=== PATIENT | male | born 1980 | race Two or more races ===

== ENCOUNTER 2022-03-02 10:01 | Emergency (ER) | payer OTHER, SELFPAY ==
[2022-03-02] VITALS (21 sets, daily range): BP systolic 142–216; BP diastolic 96–141; PULSE 62–75; RESP 18; TEMP 36.2; O2SAT 94–99; BMI 36.5
[2022-03-02] MEDS: NITROGLYCERIN 0.4 MG TAB.SUBL SUBLINGUAL (10:30)
--- NOTE | 2022-03-02 10:43 | ED_ITS ---
HPI - General Adult General Time Seen by Provider: 10:43 Date Seen: 03/02/22 Chief complaint: High Blood Pressure Stated complaint: elevated bp Time Seen by Provider: 03/02/22 10:14 Source: patient Mode of arrival: ambulatory Limitations: no limitations History of Present Illness HPI narrative: Patient is a 41-year-old male who reports he has had elevated blood pressure readings recently, and was sent to the ER. His blood pressure on presentation is 216/141. The patient was emergently given sublingual nitroglycerin as he was asymptomatic, and his blood pressure now is 152/109. He was also given Toprol all 50 mg orally his pulse is in the 70 range. He denies any symptoms, no chest pain, no urinary symptoms, no back pain no fevers chills or cough. The patient does report that he was on a blood pressure medicine in the past for high blood pressure but it did not ?agree with him?. He is a trailer truck driver, plans on doctoring locally, was started on blood pressure pill in [place] at a clinic. Related Data Previous Rx's Medication Instructions Recorded metoprolol succinate 50 mg capsule 50 mg PO DAILY #14 ea 03/02/22 sprinkle, ext. release 24 hr Allergies Allergy/AdvReac Type Severity Reaction Status Date / Time No Known Drug Allergies Allergy Verified 03/02/22 10:12 Review of Systems Status of ROS: Reports: 10 or more systems reviewed and unremarkable except as noted in History and below PFSH PFSH Social History Smoking Status: Unknown if ever smoked How often do you have a drink containing alcohol: 2-4 times a month AUDIT-C Alcohol total score: 2 Non-prescribed substance use: denies use Exam Narrative: Exam Narrative: Objective: Patient is alert orient x3, no distress, no cyanosis Vital signs show blood pressure as above, O2 sat is excellent HEENT is unremarkable no facial asymmetry pupils react to light nose icterus Neck is supple Chest clear Heart rhythm regular without murmur Abdomen soft nontender no masses or hepatosplenomegaly Extremities are no edema neurologic nonfocal Good peripheral perfusion Skin is warm and dry Const: Vital Signs, click to edit/add: Vital Signs - 24 hr 03/02/22 10:08 03/02/22 10:17 03/02/22 10:20 Temperature 97.2 F L Pulse Rate 68 68 Pulse Rate [Right Pulse Oximeter] 71 Respiratory Rate 18 Blood Pressure 163/116 H Blood Pressure [Ri ght Upper Arm] 216/141 H Pulse Oximetry 98 97 96 Oxygen Delivery Me thod Room Air 03/02/22 10:21 03/02/22 10:25 03/02/22 10:30 Temperature Pulse Rate 66 67 71 Pulse Rate [Right Pulse Oximeter] Respiratory Rate Blood Pressure 166/119 H Blood Pressure [Ri ght Upper Arm] Pulse Oximetry 97 97 94 Oxygen Delivery Me thod 03/02/22 10:31 03/02/22 10:32 03/02/22 10:40 Temperature Pulse Rate 72 70 73 Pulse Rate [Right Pulse Oximeter] Respiratory Rate Blood Pressure 152/109 H Blood Pressure [Ri ght Upper Arm] Pulse Oximetry 94 95 95 Oxygen Delivery Me thod 03/02/22 10:41 03/02/22 10:51 03/02/22 10:52 Temperature Pulse Rate 75 70 66 Pulse Rate [Right Pulse Oximeter] Respiratory Rate Blood Pressure 155/104 H 162/104 H Blood Pressure [Ri ght Upper Arm] Pulse Oximetry 96 95 97 Oxygen Delivery Me thod 03/02/22 11:00 03/02/22 11:01 03/02/22 11:10 Temperature Pulse Rate 64 67 66 Pulse Rate [Right Pulse Oximeter] Respiratory Rate Blood Pressure 142/103 H Blood Pressure [Ri ght Upper Arm] Pulse Oximetry 98 96 97 Oxygen Delivery Me thod 03/02/22 11:12 03/02/22 11:20 03/02/22 11:22 Temperature Pulse Rate 64 65 Pulse Rate [Right Pulse Oximeter] Respiratory Rate Blood Pressure 152/103 H 148/96 H Blood Pressure [Ri ght Upper Arm] Pulse Oximetry 96 97 Oxygen Delivery Me thod 03/02/22 11:32 03/02/22 11:33 03/02/22 11:40 Temperature Pulse Rate 65 62 Pulse Rate [Right Pulse Oximeter] 65 Respiratory Rate 18 Blood Pressure 160/105 H Blood Pressure [Ri ght Upper Arm] 160/109 H Pulse Oximetry 97 99 96 Oxygen Delivery Me thod Room Air Course Vital Signs Vital signs: Initial Vital Signs Temperature 97.2 F L 03/02/22 10:08 Temperature Source Temporal Artery Scan 03/02/22 10:08 Pulse Rate 71 03/02/22 10:08 Respiratory Rate 18 03/02/22 10:08 Blood Pressure 216/141 H 03/02/22 10:08 Blood Pressure Mean 166 03/02/22 10:08 Blood Pressure Position Sitting 03/02/22 10:08 Pulse Oximetry 98 03/02/22 10:08 Oxygen Delivery Method 03/02/22 10:08 Vital Signs Temperature 97.2 F L 03/02/22 10:08 Pulse Rate 71 03/02/22 10:08 Respiratory Rate 18 03/02/22 10:08 Blood Pressure 216/141 H 03/02/22 10:08 Pulse Oximetry 98 03/02/22 10:08 Oxygen Delivery Method 03/02/22 10:08 Temperature 97.2 F L 03/02/22 10:08 Pulse Rate 65 03/02/22 11:40 Respiratory Rate 18 03/02/22 11:40 Blood Pressure 160/109 H 03/02/22 11:40 Pulse Oximetry 96 03/02/22 11:40 Oxygen Delivery Method 03/02/22 11:40 Medical Decision Making MDM Narrative Medical decision making narrative: Patient's past medical issues include hypertension, and he has had an umbilical hernia repair. He is not on any medications currently, was on a blood pressure medicine the past. He is asymptomatic presently, but will do an EKG SARs test, laboratory studies, electrolytes and renal function, and urinalysis to exclude any end-organ damage. His blood pressure is already improved with nitroglycerin sublingual, will start metoprolol 50 mg orally, and watches blood pressure. If it remains stable will discharge him on a long-acting metoprolol, with clinic follow-up within the next couple of days. Addendum: The patient has remained stable he is asymptomatic, his lab studies show normal CBC, Chem problems full profile shows low normal potassium at 3.3 his renal function looks normal, his troponin is less than 0.01 CRP is negative urinalysis is basically negative COVID is pending. At this point I think we can safely let him go home, will start metoprolol long-acting for him and have him follow up with his regular doctor next few days, would recommend a blood pressure check a couple times a day for the next 2 days Lab Data Labs: Lab Results 03/02/22 03/02/22 03/02/22 Range/Units 10:34 10:50 10:50 WBC 7.39 (4.50-11.00) K/uL RBC 5.18 (4.30-5.90) m/uL Hgb 14.8 (13.5-17.5) gm/dL Hct 43.6 (37.0-53.0) % MCV 84 (80-100) fL MCH 29 (26-34) pg MCHC 34 (32-36) gm/dL RDW Coeff of Maureen 13.1 (11.5-15.5) % Plt Count 325 (140-440) K/uL Neut % (Auto) 62.5 (42.0-72.0) % Lymph % (Auto) 25.3 (20-44) % [place] % (Auto) 7.8 (0.0-11.0) % Eos % (Auto) 3.2 (0.0-7.0) % Baso % (Auto) 0.9 (0.0-3.0) % Neut # (Auto) 4.61 (1.7-7.0) K/uL Lymph # (Auto) 1.87 (0.90-2.90) K/uL [place] # (Auto) 0.60 (0.00-0.90) K/UL Eos # (Auto) 0.24 (0.00-0.50) K/uL Baso # (Auto) 0.07 (0.00-0.30) K/uL Abs Immat Gran (auto) 0.02 (0.00-0.30) K/uL Sodium 142 (135-149) mmol/L Potassium 3.3 L (3.6-5.1) mmol/L Chloride 105 (96-114) mmol/L Carbon Dioxide 28 (20-32) mmol/L BUN 15 (5-24) mg/dL Creatinine 1.0 (0.5-1.5) mg/dL Estimated Creat Clear 95.00 Estimated GFR 98 ml/min Glucose 101 (60-115) mg/dL Calcium 8.4 (8.4-10.6) mg/dL Total Bilirubin 0.5 (0.1-1.5) mg/dL Direct Bilirubin 0.2 (0.0-0.5) mg/dL AST 25 (12-35) U/L ALT 35 (4-50) U/L Alkaline Phosphatase 87 (40-150) U/L Troponin I (0.01-0.04) ng/mL C-Reactive Protein (0.5-1.0) mg/dL Total Protein 7.7 (6.0-8.3) g/dL Albumin 4.6 (3.3-5.0) g/dL Urine Color Yellow (Yellow) Urine Appearance Cloudy A (Clear) Urine pH 7.0 (5.0-8.5) Ur Specific [place] 1.025 (1.000-1.030) Urine Protein Negative (Negative) Urine Glucose (UA) Negative (Negative) Urine Ketones Negative (Negative) Urine Blood Negative (Negative) Urine Nitrite Negative (Negative) Urine Bilirubin Negative (Negative) Urine Urobilinogen 0.2 (0.2-1.0) Ur Leukocyte Esterase Negative (Negative) Urine RBC 0-2 (0-2) Urine WBC 0-2 (0-5) Ur Squamous Epith Cells None (None-Few) Amorphous Sediment Many A (None) Urine Bacteria Few A (None) 03/02/22 Range/Units 10:50 WBC (4.50-11.00) K/uL RBC (4.30-5.90) m/uL Hgb (13.5-17.5) gm/dL Hct (37.0-53.0) % MCV (80-100) fL MCH (26-34) pg MCHC (32-36) gm/dL RDW Coeff of Maureen (11.5-15.5) % Plt Count (140-440) K/uL Neut % (Auto) (42.0-72.0) % Lymph % (Auto) (20-44) % [place] % (Auto) (0.0-11.0) % Eos % (Auto) (0.0-7.0) % Baso % (Auto) (0.0-3.0) % Neut # (Auto) (1.7-7.0) K/uL Lymph # (Auto) (0.90-2.90) K/uL [place] # (Auto) (0.00-0.90) K/UL Eos # (Auto) (0.00-0.50) K/uL Baso # (Auto) (0.00-0.30) K/uL Abs Immat Gran (auto) (0.00-0.30) K/uL Sodium (135-149) mmol/L Potassium (3.6-5.1) mmol/L Chloride (96-114) mmol/L Carbon Dioxide (20-32) mmol/L BUN (5-24) mg/dL Creatinine (0.5-1.5) mg/dL Estimated Creat Clear Estimated GFR ml/min Glucose (60-115) mg/dL Calcium (8.4-10.6) mg/dL Total Bilirubin (0.1-1.5) mg/dL Direct Bilirubin (0.0-0.5) mg/dL AST (12-35) U/L ALT (4-50) U/L Alkaline Phosphatase (40-150) U/L Troponin I < 0.01 L (0.01-0.04) ng/mL C-Reactive Protein 1.0 (0.5-1.0) mg/dL Total Protein (6.0-8.3) g/dL Albumin (3.3-5.0) g/dL Urine Color (Yellow) Urine Appearance (Clear) Urine pH (5.0-8.5) Ur Specific [place] (1.000-1.030) Urine Protein (Negative) Urine Glucose (UA) (Negative) Urine Ketones (Negative) Urine Blood (Negative) Urine Nitrite (Negative) Urine Bilirubin (Negative) Urine Urobilinogen (0.2-1.0) Ur Leukocyte Esterase (Negative) Urine RBC (0-2) Urine WBC (0-5) Ur Squamous Epith Cells (None-Few) Amorphous Sediment (None) Urine Bacteria (None) Discharge Plan Discharge Clinical Impression: Hypertensive urgency Patient Disposition: Home, Self-Care Condition: Improved Additional Instructions: Blood pressure medicine as prescribed, lower salt intake, follow up with primary care in 2 days, check blood pressure a couple times each day. Patient should not drive until he is rechecked evaluated with his regular doctor in 2 days in terms of his [employer] job Activity Level: Light activity Discharge Diet: Heart Healthy (2 gm sodium, low fat) Prescriptions: New metoprolol succinate 50 mg capsule,sprinkle,ER 24hr 50 mg PO DAILY Qty: 14 2RF Follow Up/Referrals: Jacquelin Mays MD [Primary Care Provider] - Stand Alone Forms: [employer] Info Instructions
[2022-03-02 11:01] LABS: Basophils Absolute Auto 0.07 K/uL (0.00-0.30); Basophils Percent Auto 0.9 % (0.0-3.0); Eosinophils Absolute Auto 0.24 K/uL (0.00-0.50); Eosinophils Percent Auto 3.2 % (0.0-7.0); Hematocrit 43.6 % (37.0-53.0); Hemoglobin* 14.8 gm/dL (13.5-17.5); Immature Granulocytes Abs Auto 0.02 K/uL (0.00-0.30); Lymphocytes Absolute Auto 1.87 K/uL (0.90-2.90); Lymphocytes Percent Auto 25.3 % (20-44); Mean Corpuscular HGB Conc 34 gm/dL (32-36); Mean Corpuscular Hemoglobin 29 pg (26-34); Mean Corpuscular Volume 84 fL (80-100); Monocytes Percent Auto 7.8 % (0.0-11.0); Neutrophils Absolute Auto 4.61 K/uL (1.7-7.0); Neutrophils Percent Auto 62.5 % (42.0-72.0); Platelet Count* 325 K/uL (140-440); RDW Coefficient of Variation % 13.1 % (11.5-15.5); Red Blood Count 5.18 m/uL (4.30-5.90); Slide Review Reflex No; White Blood Count* 7.39 K/uL (4.50-11.00)
[2022-03-02 11:09] LABS: Albumin* 4.6 g/dL (3.3-5.0); Chloride* 105 mmol/L (96-114)
[2022-03-02 11:10] LABS: Potassium* 3.3 mmol/L (3.6-5.1); Sodium* 142 mmol/L (135-149)
[2022-03-02 11:12] LABS: Carbon Dioxide* 28 mmol/L (20-32); Estimated Glomerular Filt Rate 98 ml/min
[2022-03-02 11:13] LABS: Alanine Aminotransferase* 35 U/L (4-50); Alkaline Phosphatase* 87 U/L (40-150); Aspartate Amino Transferase* 25 U/L (12-35); Bilirubin Direct* 0.2 mg/dL (0.0-0.5); Bilirubin Total* 0.5 mg/dL (0.1-1.5); Blood Urea Nitrogen* 15 mg/dL (5-24); Calcium* 8.4 mg/dL (8.4-10.6); Glucose* 101 mg/dL (60-115); Total Protein* 7.7 g/dL (6.0-8.3)
[2022-03-02] MEDS: METOPROLOL TARTRATE 25 MG TABLET 50 MG PO (11:25)
[2022-03-02 11:36] LABS: Appearance Urine Cloudy (Clear); Bilirubin Urine Negative (Negative); Blood Urine Negative (Negative); Color Urine Yellow (Yellow); Glucose Urine Negative (Negative); Ketones Urine Negative (Negative); Leukocyte Esterase Urine Negative (Negative); Nitrite Urine Negative (Negative); Protein Urine Negative (Negative); Specific Gravity Urine 1.025 (1.000-1.030); Urobilinogen Urine 0.2 (0.2-1.0)
[2022-03-02 11:38] LABS: Troponin I* < 0.01 ng/mL (0.01-0.04)
[2022-03-02 11:45] LABS: Amorphous Sediment Urine Many; Bacteria Urine Few; RBC Urine 0-2 (0-2); WBC Urine 0-2 (0-5)
[2022-03-02 11:51] LABS: SARS PCR* Negative SARS-CoV-2 (Negative)
== END 2022-03-02 12:01 | disposition home or self-care (01) ==
PROVIDERS: Emergency Provider Family Medicine; PCP Emergency Medicine
DX: I16.0 Hypertensive urgency (principal)
CPT/HCPCS: 36415; 80048; 80076; 81001; 84484; 85025; 86140; 87086; 87635; 99284; A9270

== ENCOUNTER 2022-03-17 13:11 | Outpatient (CLI) | payer OTHER, SELFPAY ==
[2022-03-17 21:54] LABS: Albumin* 4.8 g/dL (3.3-5.0); Chloride* 104 mmol/L (96-114); Sodium* 141 mmol/L (135-149)
[2022-03-17 21:56] LABS: Carbon Dioxide* 28 mmol/L (20-32); Cholesterol* 161 mg/dL (90-199); Estimated Glomerular Filt Rate 98 ml/min
[2022-03-17 21:57] LABS: Alanine Aminotransferase* 38 U/L (4-50); Alkaline Phosphatase* 86 U/L (40-150); Aspartate Amino Transferase* 31 U/L (12-35); Bilirubin Total* 0.8 mg/dL (0.1-1.5); Blood Urea Nitrogen* 19 mg/dL (5-24); Calcium* 9.3 mg/dL (8.4-10.6); Glucose* 93 mg/dL (60-115); HDL Cholesterol* 38 mg/dL (>=40); LDL Cholesterol Calculated 99 mg/dL (<100); Total Protein* 7.9 g/dL (6.0-8.3); Triglycerides* 122 mg/dL (40-149)
[2022-03-17 22:46] LABS: Hepatitis C Virus Antibody* Negative (Negative)
== END 2022-03-17 13:12 | disposition home or self-care (01) ==
PROVIDERS: PCP Emergency Medicine; Visit Provider Family Medicine
DX: Z00.00 Encounter for general adult medical examination without abnormal findings (principal); I10 Essential (primary) hypertension; E66.9 Obesity, unspecified; Z13.6 Encounter for screening for cardiovascular disorders
CPT/HCPCS: 80053; 80061; 86803

== ENCOUNTER 2023-04-13 11:09 | Outpatient (CLI) | payer OTHER, SELFPAY ==
[2023-04-13 22:27] LABS: Total Protein Urine < 5 mg/dL
[2023-04-13 22:33] LABS: Microalbumin Creatinine Ratio 0 mg/g (0-30); Microalbumin Urine 1 mg/dL
== END 2023-04-13 11:10 | disposition home or self-care (01) ==
PROVIDERS: PCP Emergency Medicine; Visit Provider Family Medicine
DX: E11.9 Type 2 diabetes mellitus without complications (principal)
CPT/HCPCS: 80053; 82043; 82570; 84156

== ENCOUNTER 2023-09-29 12:06 | Outpatient (CLI) | payer OTHER, SELFPAY | END 2023-09-29 12:07 | disposition home or self-care (01) | PROVIDERS: PCP Family Medicine; Visit Provider Family Medicine | DX: I10 Essential (primary) hypertension (principal) | CPT/HCPCS: 80053; 80061; 82043; 82570 ==

== ENCOUNTER 2024-01-15 14:03 | Outpatient (CLI) | payer OTHER, SELFPAY | END 2024-01-15 14:04 | disposition home or self-care (01) | PROVIDERS: PCP Family Medicine; Visit Provider Family Medicine | DX: I10 Essential (primary) hypertension (principal) | CPT/HCPCS: 80053; 80061 ==

== ENCOUNTER 2024-02-28 09:45 | Outpatient (CLI) | payer OTHER, SELFPAY | END 2024-02-28 09:46 | disposition home or self-care (01) | LOC: NFLDREF 03-03 12:48 | PROVIDERS: PCP Family Medicine; Referring Provider Family Medicine; Visit Provider Family Medicine | DX: B35.1 Tinea unguium (principal); I10 Essential (primary) hypertension | CPT/HCPCS: 80053 ==

== ENCOUNTER 2024-11-07 12:00 | Outpatient (CLI) | payer OTHER, SELFPAY | END 2024-11-07 12:01 | disposition home or self-care (01) | LOC: NFLDREF 11-13 03:14 | PROVIDERS: PCP Family Medicine; Referring Provider Family Medicine; Visit Provider Family Medicine | DX: Z00.01 Encounter for general adult medical examination with abnormal findings (principal); I10 Essential (primary) hypertension; Z83.3 Family history of diabetes mellitus; Z12.5 Encounter for screening for malignant neoplasm of prostate | CPT/HCPCS: 80053; 80061; 82043; 82570; G0103 ==